=== PATIENT | male | born 1975 | race Two or more races ===

== ENCOUNTER 2016-11-16 10:59 | Emergency (ER) | payer BC ==
[2016-11-16 11:43] LABS: BASOPHIL % 0.4 % (0-2); PLATELET COUNT 215 x10^3mcL (130-400); RED CELL DISTRIBUTION WIDTH 12.4 % (11.5-14.5)
[2016-11-16 11:51] LABS: CALCIUM 9.5 mg/dL (8.5-10.1); CARBON DIOXIDE 25.7 mmol/L (21-32); CHLORIDE SERUM 97 mmol/L (98-107); GFR1 > 60 mL/min; GLUCOSE SERUM 146 mg/dL (74-106); POTASSIUM SERUM 3.2 mmol/L (3.5-5.1); SODIUM SERUM 137 mmol/L (136-145)
[2016-11-16 11:55] LABS: ALBUMIN 4.4 g/dL (3.4-5.0); ALKALINE PHOSPHATASE 54 U/L (46-116); ALT/SGPT 57 U/L (16-63); AST/SGOT 53 U/L (15-37); BILIRUBIN TOTAL 1.72 mg/dL (0.20-1.00); LIPASE 142 IU/L (73-393); TOTAL PROTEIN, SERUM 7.7 g/dL (6.4-8.2)
[2016-11-16] MEDS ORDERED: ALPRAZOLAM2 MG PO (13:27)
[2016-11-16 14:08] LABS: AMYLASE 61 U/L (25-115); HDL CHOLESTEROL 60 mg/dL (40-60)
[2016-11-16 14:10] LABS: CHOLESTEROL 246 mg/dL (<200); CHOLESTEROL/HDL RATIO 4.1; TRIGLYCERIDES 501 mg/dL (<150)
[2016-11-16 14:11] LABS: T3 TOTAL 1.06 ng/mL
[2016-11-16 14:22] LABS: FREE T4 1.54 ng/dL (0.76-1.46); FREE THYROXINE INDEX 4.4 ug/dL (1.4-4.5); T4(THYROXINE) 11.9 ug/dL (4.7-13.3)
[2016-11-16 15:19] VITALS: BP 142/96
== END 2016-11-16 15:21 | disposition left against medical advice (07) ==
LOC: ED 10:59 → DU 13:15
PROVIDERS: Emergency Medicine; Family Medicine
DX: R10.13 Epigastric pain (principal); E87.6 Hypokalemia; Z87.11 Personal history of peptic ulcer disease
CPT/HCPCS: 80307; 83880; 84439; C9113; G0480; J2405; J3010; J3480; J3490; J7030; Q0092; Q0162